=== PATIENT | male | born 1980 | race Caucasian/White ===

== ENCOUNTER 2016-10-27 18:18 | Emergency (ER) | payer MEDICARE, OTHER ==
[~2016-10-27] VITALS: Ht 188 cm; Wt 104.3 kg
[2016-10-27 18:24] VITALS: BP 163/96
[2016-10-27] MEDS ORDERED: MECLIZINE HCL 12.5 MG TABLET PO ONE (19:00)
[2016-10-27] MEDS ORDERED: MECLIZINE HCL 25 MG TABLET ONE (19:02)
== END 2016-10-27 19:50 | disposition home or self-care (01) ==
LOC: ER 18:19
DX: R51 Headache (principal); R42 Dizziness and giddiness; Z59.0 Homelessness; F20.9 Schizophrenia, unspecified; Z88.0 Allergy status to penicillin; Z88.6 Allergy status to analgesic agent
CPT/HCPCS: 99282; A4606; J8597 ×2; Z7610